=== PATIENT | male | born 2000 | race Caucasian/White ===

== ENCOUNTER 2022-05-19 10:02 | Outpatient (CLI) | payer OTHER, SELFPAY ==
[2022-05-19 13:45] LABS: Chloride* 102 mmol/L (96-114)
[2022-05-19 13:46] LABS: Potassium* 4.3 mmol/L (3.6-5.1); Sodium* 137 mmol/L (135-149)
[2022-05-19 13:48] LABS: Carbon Dioxide* 27 mmol/L (20-32); Cholesterol* 256 mg/dL (90-199); Estimated Glomerular Filt Rate 108 ml/min
[2022-05-19 13:49] LABS: Blood Urea Nitrogen* 21 mg/dL (5-24); Calcium* 9.4 mg/dL (8.4-10.6); Glucose* 99 mg/dL (60-115); HDL Cholesterol* 43 mg/dL (>=40); LDL Cholesterol Calculated 190 mg/dL (<100); Triglycerides* 117 mg/dL (40-149)
== END 2022-05-19 10:03 | disposition home or self-care (01) ==
PROVIDERS: PCP Family Medicine; Visit Provider Family Medicine
DX: Z00.00 Encounter for general adult medical examination without abnormal findings (principal); Z13.1 Encounter for screening for diabetes mellitus; Z13.6 Encounter for screening for cardiovascular disorders; Z13.0 Encounter for screening for diseases of the blood and blood-forming organs and certain disorders involving the immune mechanism
CPT/HCPCS: 80048; 80061

== ENCOUNTER 2023-08-10 15:42 | Emergency (ER) | payer OTHER, SELFPAY ==
[2023-08-10 15:51] VITALS: BP 151/105; PULSE 76; RESP 18; TEMP 36.4; O2SAT 98; BMI 36.9
--- NOTE | 2023-08-10 17:34 | CRLHL7_ITS ---
For Patients: As a result of the Century Cures Act, medical imaging exams and procedure reports are released immediately into your electronic medical record. You may view this report before your referring provider. If you have questions, please contact your health care provider. INDICATION: Blood in stool, lower abdominal pain. TECHNIQUE: CT of the abdomen and pelvis with 123 cc Isovue 370 IV contrast. Coronal and sagittal reconstructions. COMPARISON: None. FINDINGS: The liver, gallbladder, spleen, pancreas, and adrenal glands are negative. No biliary dilation. Hepatic and portal veins are patent. Symmetric enhancement of the kidneys. No hydronephrosis or ureteral dilation. No obstructing urinary calculi identified. No bladder wall thickening. Nonenlarged prostate gland. No small bowel dilation. Moderate amount of stool throughout the colon. Negative appendix. No signs of bowel inflammation. No intraperitoneal free air or fluid. No lymphadenopathy. Small fat containing umbilical hernia. Left-sided L5 pars interarticularis defect without spondylolisthesis. The lung bases are clear. IMPRESSION: 1. No acute findings in the abdomen or pelvis. 2. Moderate amount of stool. No signs of bowel inflammation. Please note that all CT scans at this facility use dose modulation, iterative reconstruction, and/or weight-based dosing when appropriate to reduce radiation dose to as low as reasonably achievable. Dictated by Maria Dolores George MD @ 08/10/2023 7:10:36 PM (Electronically Signed)
--- NOTE | 2023-08-10 17:35 | ED.GENADULT ---
HPI - General Adult General Chief complaint: GI Bleed Stated complaint: blood in stool Time Seen by Provider: 08/10/23 17:13 History of Present Illness HPI narrative: This 23-year-old male comes in reporting some occasional blood in his stool over the past several days. He did have some blood in his stool a couple months ago and was seen in clinic at which time his labs looked reassuring. He was encouraged to have a colonoscopy but has not yet had this done. He states that he took an antibiotic and finished about a week ago. He does not report any fevers. He does have some occasional pain in his lower abdomen. He is otherwise in good health. He states that he does not know of any history of colon cancer or or other bowel disease in his family. Related Data Home Medications Medication Instructions Recorded Confirmed No Known Home Medications 01/17/23 01/17/23 Allergies Allergy/AdvReac Type Severity Reaction Status Date / Time amoxicillin Allergy Unknown Verified 01/17/23 08:45 Penicillins Allergy Unknown Verified 01/17/23 08:45 Review of Systems Status of ROS: Reports: 10 or more systems reviewed and unremarkable except as noted in History and below Narrative: Constitutional: No fevers, no weight gain or loss. Eyes: No discharge. No vision changes. HENT: No congestion, no sore throat, no ear pain. Cardiovascular: No chest pain, no palpitations. Respiratory: No shortness of breath, no wheezes, no cough. Gastrointestinal: Occasional lower abdominal pain. Some blood in the stool recently. Genitourinary: No dysuria, no hematuria. Musculoskeletal: Normal range of motion. Skin: No rashes, no pruritis. Neurological: No dizziness, weakness, sensory change, speech change. Endo/Heme/Allergies: No bruising or bleeding. No polydipsia. Pysch: no suicidality, no anxiety, no insomnia. All other systems reviewed and are negative. [facility] Social History Narrative: Minimal alcohol intake. 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 Smoking Status: Never smoker Exam Narrative: Exam Narrative: Constitutional: Well-developed, well-nourished, no acute distress. HEENT: Normocephalic, atraumatic. Neck: Normal range of motion. Nontender. Supple. Heart: Regular. No murmurs. Normal rate. Intact distal pulses. Lungs: Clear to auscultation. No chest discomfort. No wheezes, rhonchi, or rales. Abdomen: Normal bowel sounds. Nontender. No rebound tenderness. Genitalia: Deferred. Back: No midline tenderness. Normal range of motion. Extremities: Normal range of motion. No injury. Skin: Intact. No rash. Warm. No erythema or pallor. Neurologic: No altered sensation. No weakness. Alert and oriented. Psychiatric: No suicidality. No anxiety or depression. No insomnia. Nursing notes and vitals signs are reviewed. Const: Vital Signs, click to edit/add: Vital Signs - 24 hr 08/10/23 15:51 Temperature 97.6 F Pulse Rate [Right Pulse Oximeter] 76 Respiratory Rate 18 Blood Pressure [Ri ght Upper Arm] 151/105 H Pulse Oximetry 98 Oxygen Delivery Me thod Room Air Course Vital Signs Vital signs: Initial Vital Signs Temperature 97.6 F 08/10/23 15:51 Temperature Source Temporal Artery Scan 08/10/23 15:51 Pulse Rate 76 08/10/23 15:51 Respiratory Rate 18 08/10/23 15:51 Blood Pressure 151/105 H 08/10/23 15:51 Blood Pressure Mean 120 H 08/10/23 15:51 Blood Pressure Position Sitting 08/10/23 15:51 Pulse Oximetry 98 08/10/23 15:51 Oxygen Delivery Method Room Air 08/10/23 15:51 Vital Signs Temperature 97.6 F 08/10/23 15:51 Pulse Rate 76 08/10/23 15:51 Respiratory Rate 18 08/10/23 15:51 Blood Pressure 151/105 H 08/10/23 15:51 Pulse Oximetry 98 08/10/23 15:51 Oxygen Delivery Method Room Air 08/10/23 15:51 Temperature 97.6 F 08/10/23 15:51 Pulse Rate 76 08/10/23 15:51 Respiratory Rate 18 08/10/23 15:51 Blood Pressure 151/105 H 08/10/23 15:51 Pulse Oximetry 98 08/10/23 15:51 Oxygen Delivery Method Room Air 08/10/23 15:51 Medical Decision Making MDM Narrative Medical decision making narrative: This patient comes in with concern about some blood in the toilet. He has not had a colonoscopy or flexible sigmoidoscopy. He had similar symptoms a couple months ago and this was recommended. He also states that he took an antibiotic recently for a sinus infection. Today an IV was established and CT imaging of his abdomen and pelvis is obtained. This shows no acute findings or sign of colitis. Additionally his labs also returned with normal findings. A stool sample is acquired and results are pending. I stressed again the importance of having a flexible sigmoidoscopy or colonoscopy to complete the workup for his symptoms. He will need to arrange appointment for this to occur. Lab Data Labs: Lab Results 08/10/23 Range/Units 17:52 WBC 8.10 (4.50-11.00) K/uL RBC 5.56 (4.30-5.90) m/uL Hgb 14.6 (13.5-17.5) gm/dL Hct 43.4 (37.0-53.0) % MCV 78 L (80-100) fL MCH 26 (26-34) pg MCHC 34 (32-36) gm/dL RDW Coeff of Valeriy 13.1 (11.5-15.5) % Plt Count 257 (140-440) K/uL Neut % (Auto) 49.0 (42.0-72.0) % Lymph % (Auto) 41.7 (20-44) % [place] % (Auto) 6.8 (0.0-11.0) % Eos % (Auto) 2.3 (0.0-7.0) % Baso % (Auto) 0.1 (0.0-3.0) % Neut # (Auto) 3.96 (1.7-7.0) K/uL Lymph # (Auto) 3.38 H (0.90-2.90) K/uL [place] # (Auto) 0.60 (0.00-0.90) K/UL Eos # (Auto) 0.19 (0.00-0.50) K/uL Baso # (Auto) 0.01 (0.00-0.30) K/uL Abs Immat Gran (auto) 0.01 (0.00-0.30) K/uL Imm/Tot Granulo (auto) 0.1 % Sodium 140 (135-149) mmol/L Potassium 3.7 (3.6-5.1) mmol/L Chloride 105 (96-114) mmol/L Carbon Dioxide 26 (20-32) mmol/L Anion Gap 9 (7-15) mEq/L BUN 17 (5-24) mg/dL Creatinine 0.8 (0.5-1.5) mg/dL Estimated Creat Clear 141.15 Estimated GFR 126 ml/min Glucose 111 (60-115) mg/dL Calcium 9.1 (8.4-10.6) mg/dL C-Reactive Protein < 0.5 L (0.5-1.0) mg/dL Discharge Plan Discharge Clinical Impression: Rectal bleeding Patient Disposition: Home, Self-Care Condition: Unchanged Additional Instructions: Follow-up with automatic die cutting machine operator or surgery Clinic for a lower GI scope such as a colonoscopy or flexible sigmoidoscopy. Return if symptoms are persistent or worsening. Prescriptions: No Action No Known Home Medications Follow Up/Referrals: Jesus Champion MD [Primary Care Provider] - Stand Alone Forms: [employer] [facility] Info Instructions
[2023-08-10 18:10] LABS: Basophils Absolute Auto 0.01 K/uL (0.00-0.30); Basophils Percent Auto 0.1 % (0.0-3.0); Eosinophils Absolute Auto 0.19 K/uL (0.00-0.50); Eosinophils Percent Auto 2.3 % (0.0-7.0); Hematocrit 43.4 % (37.0-53.0); Hemoglobin* 14.6 gm/dL (13.5-17.5); Immature Granulocytes Abs Auto 0.01 K/uL (0.00-0.30); Immature Granulocytes Pct Auto 0.1 %; Lymphocytes Absolute Auto 3.38 K/uL (0.90-2.90); Lymphocytes Percent Auto 41.7 % (20-44); Mean Corpuscular HGB Conc 34 gm/dL (32-36); Mean Corpuscular Hemoglobin 26 pg (26-34); Mean Corpuscular Volume 78 fL (80-100); Monocytes Percent Auto 6.8 % (0.0-11.0); Neutrophils Absolute Auto 3.96 K/uL (1.7-7.0); Platelet Count* 257 K/uL (140-440); RDW Coefficient of Variation % 13.1 % (11.5-15.5); Red Blood Count 5.56 m/uL (4.30-5.90)
[2023-08-10 18:24] LABS: Chloride* 105 mmol/L (96-114); Slide Review Reflex No
[2023-08-10 18:25] LABS: Potassium* 3.7 mmol/L (3.6-5.1); Sodium* 140 mmol/L (135-149)
[2023-08-10 18:28] LABS: Anion Gap 9 mEq/L (7-15); Blood Urea Nitrogen* 17 mg/dL (5-24); Carbon Dioxide* 26 mmol/L (20-32); Creatinine* 0.8 mg/dL (0.5-1.5); Est. Creatinine Clearance* 141.15; Estimated Glomerular Filt Rate 126 ml/min
[2023-08-10 18:29] LABS: Calcium* 9.1 mg/dL (8.4-10.6); Glucose* 111 mg/dL (60-115)
[2023-08-10 18:32] LABS: C Reactive Protein* < 0.5 mg/dL (0.5-1.0)
[2023-08-10 19:57] LABS: C.Difficile Negative (Negative); CDIFFEPI 027 PRESUMPTIVE NEGATIVE (Negative)
[2023-08-10 20:18] VITALS: BP 143/91; PULSE 64; RESP 16; O2SAT 97
== END 2023-08-10 20:19 | disposition home or self-care (01) ==
LOC: ED 20:11
PROVIDERS: Emergency Provider Emergency Medicine Emergency Medical Services; PCP Family Medicine
DX: K62.5 Hemorrhage of anus and rectum (principal)
CPT/HCPCS: 36415; 74177; 80048; 85025; 86140; 87493; 99283; 99284; Q9967

== ENCOUNTER 2024-08-27 14:00 | Outpatient (CLI) | payer OTHER, SELFPAY | END 2024-08-27 14:01 | disposition home or self-care (01) | PROVIDERS: PCP Family Medicine; Visit Provider Family Medicine | DX: E78.5 Hyperlipidemia, unspecified (principal); Z13.1 Encounter for screening for diabetes mellitus | CPT/HCPCS: 80048; 80061 ==

== ENCOUNTER 2025-02-25 09:22 | Outpatient (CLI) | payer OTHER, SELFPAY ==
--- NOTE | 2025-02-25 10:20 | P.ANES_ITS ---
Anesthesia Charges Start Date/Time Anesthesia Start Date: 02/25/25 Anesthesia Start Time: 10:00 Stop Date/Time Anesthesia Stop Date: 02/25/25 Anesthesia Stop Time: 10:20 Coding CPT Codes CPT Codes: SONAM LWR INTST SCR COLSC - 64345 ([id number]) P2 - PATIENT W/MILD SYST DISEASE, QX - STATION USHER SVC W/ MD MED DIRECTION, QK - GREEN COFFEE BLENDER 2-4 CNCRNT ANES PROC
--- NOTE | 2025-02-25 10:20 | W.ANESCHARGE ---
Anesthesia Charges Start Date/Time Anesthesia Start Date: 02/25/25 Anesthesia Start Time: 10:00 Stop Date/Time Anesthesia Stop Date: 02/25/25 Anesthesia Stop Time: 10:20 Coding CPT Codes CPT Codes: SONAM LWR INTST SCR COLSC - 65220 ([id number]) P2 - PATIENT W/MILD SYST DISEASE, QX - BOX TURNER SVC W/ MD MED DIRECTION, QK - VOLUNTEER PATIENT REPRESENTATIVE 2-4 CNCRNT ANES PROC
--- NOTE | 2025-02-25 10:36 | P.ANES_ITS ---
Anesthesia Charges Start Date/Time Anesthesia Start Date: 02/25/25 Anesthesia Start Time: 10:00 Stop Date/Time Anesthesia Stop Date: 02/25/25 Anesthesia Stop Time: 10:20 Coding CPT Codes CPT Codes: ANES LWR INTST SCR COLSC - 70785 ([id number]) P2 - PATIENT W/MILD SYST DISEASE, QK - MEDICAL BILLING INSTRUCTOR 2-4 CNCRNT ANES PROC, QX - UNDERGROUND TRUCK OPERATOR SVC W/ MD MED DIRECTION
--- NOTE | 2025-02-25 10:36 | W.ANESCHARGE ---
Anesthesia Charges Start Date/Time Anesthesia Start Date: 02/25/25 Anesthesia Start Time: 10:00 Stop Date/Time Anesthesia Stop Date: 02/25/25 Anesthesia Stop Time: 10:20 Coding CPT Codes CPT Codes: ANES LWR INTST SCR COLSC - 99751 ([id number]) P2 - PATIENT W/MILD SYST DISEASE, QK - METAL CUT OFF SAW OPERATOR 2-4 CNCRNT ANES PROC, QX - AU PAIR SVC W/ MD MED DIRECTION
== END 2025-02-25 09:23 | disposition home or self-care (01) ==
LOC: OP CLINIC 09:23
PROVIDERS: PCP Family Medicine; Visit Provider Internal Medicine
DX: K92.1 Melena (principal)
CPT/HCPCS: 00811; 00812; 45378; J2704